=== PATIENT | male | born 1990 | race Two or more races ===

== ENCOUNTER 2021-01-12 18:52 | Emergency (ER) | payer OTHER ==
[~2021-01-12] VITALS: Ht 185.4 cm; Wt 86.2 kg
[2021-01-12 19:02] VITALS: BP 133/72
== END 2021-01-12 22:14 | disposition home or self-care (01) ==
LOC: ER 18:52
DX: S00.93XA Contusion of unspecified part of head, initial encounter (principal); V43.53XA Car driver injured in collision with pick-up truck in traffic accident, initial encounter; Y93.89 Activity, other specified; Y92.488 Other paved roadways as the place of occurrence of the external cause; Y99.8 Other external cause status
CPT/HCPCS: 70450